=== PATIENT | male | born 1980 | race Caucasian/White ===

== ENCOUNTER 2018-02-14 13:21 | Emergency (ER) | payer OTHER ==
[2018-02-14 13:33] VITALS: BP 114/102
--- NOTE | 2018-02-14 13:36 | EDPHY ---
H & P Stated Complaint: L thumb injury--playing soccer Time Seen by Provider: 02/14/18 13:36 HPI/ROS: Chief Complaint: Left thumb injury HPI: 29-year-old male injured his left thumb when he tried to for a ball while playing soccer. He had immediate onset of pain. He has a history of fractures in the past and is concerned he may have broken it. Denies any other injuries. He has not taken any medication. ROS: 10 systems were reviewed and were negative except those elements noted in the HPI. Social History: No smoking, no alcohol, no recreational drug use Family History: non-contributory Physical Exam: General: Awake, alert, no acute distress Left hand: Patient has an obvious deformity at his IP joint of his left thumb. Sensations intact distally. 2+ capillary refill. No other hand tenderness or abnormality. Skin: No rash - Personal History Current Tetanus/Diphtheria Vaccine: Unsure Current Tetanus Diphtheria and Acellular Pertussis (TDAP): Unsure - Medical/Surgical History Hx Asthma: No Hx Chronic Respiratory Disease: No Hx Diabetes: No Hx Cardiac Disease: No Hx Renal Disease: No Hx Cirrhosis: No Hx Alcoholism: No Hx HIV/AIDS: No Hx Splenectomy or Spleen Trauma: No Other PMH: denies - Social History Smoking Status: Never smoked Constitutional: Initial Vital Signs Temperature (C) 37.0 C 02/14/18 13:30 Heart Rate 78 02/14/18 13:30 Respiratory Rate 16 02/14/18 13:30 Blood Pressure 114/102 H 02/14/18 13:30 O2 Sat (%) 97 02/14/18 13:30 O2 Delivery Mode Room Air Allergies/Adverse Reactions: No Known Allergies Allergy (Verified 06/24/14 17:25) Home Medications: Medication Instructions Recorded NK [No Known Home Meds] 02/14/18 Medical Decision Making - Diagnostics Imaging Results: Imaging Impressions Hand X-Ray 02/14/18 13:33 Impression: Dislocated thumb interphalangeal joint. Procedures: Procedure: Finger dislocation. Patient verbally consented the procedure. With traction and volar pressure the distal phalanx was reduced with minimal effort. Patient tolerated the procedure well. Postprocedure the patient's sensation was and intact distally. He maintained normal perfusion. He was placed in an aluminum foam finger splint. ED Course/Re-evaluation: Finger reduced. Patient placed in a finger splint. Will discharge with follow- up with hand surgeon. Departure - Departure Disposition: Home, Routine, Self-Care Clinical Impression: Thumb dislocation Condition: Good Instructions: Finger Dislocation (ED) Additional Instructions: Leave the splint in place until your seen by the hand surgeon. You may alternate ibuprofen with acetaminophen as needed for pain. Apply ice for 15 min of every hour while awake. Follow up with the hand surgeon in 3-4 days for further evaluation. Referrals: Scott Willoughby MD [Medical Doctor] - As per Instructions
[2018-02-14] MEDS ORDERED: IBUPROFEN 600 MG TAB PO ONE (14:09)
== END 2018-02-14 14:16 | disposition home or self-care (01) ==
PROC: 0RSXXZZ Reposition Left Finger Phalangeal Joint, External Approach (ICD-10-PCS; principal; 2018-02-14)
DX: S63.105A Unspecified dislocation of left thumb, initial encounter (principal); W19.XXXA Unspecified fall, initial encounter; Y93.66 Activity, soccer; Y92.9 Unspecified place or not applicable; Y99.9 Unspecified external cause status
CPT/HCPCS: L3925